=== PATIENT | female | born 1965 | race Caucasian/White ===

== ENCOUNTER 2016-08-08 10:07 | Emergency (ER) | payer OTHER ==
[2016-08-08 10:23] VITALS: BMI 27.1
[2016-08-08 10:24] VITALS: BP 120/75; PULSE 68; RESP 18; TEMP 99; O2SAT 98
[2016-08-08] MEDS ORDERED: Hydrocodone/Acetaminophen 5 mg /300 mg Tab PO STA (10:56)
[2016-08-08] MEDS ORDERED: Hydrocodone/Acetaminophen 5 mg /300 mg Tab PO ONE (11:05)
--- NOTE | 2016-08-08 11:10 | C.PDOC ---
History Of Present Illness 50 year old female presents to the ED for complaints of right upper gum pain that began four days ago and is now radiating to the right cheek and mild cheek swelling. She notes a history dental problems, removal of all upper teeth, and now wears dentures. Patient denies any fever, injuries, or any other complaints at this time. Time Seen by Provider: 08/08/16 10:27 Chief Complaint (Nursing): Dental Pain History Per: Patient History/Exam Limitations: no limitations Onset/Duration Of Symptoms: Days Current Symptoms Are (Timing): Worse Past Medical History Reviewed: Historical Data, Nursing Documentation, Vital Signs Vital Signs: Last Vital Signs Temp 99 F 08/08/16 10:23 Pulse 68 08/08/16 10:23 Resp 18 08/08/16 10:23 BP 120/75 08/08/16 10:23 Pulse Ox 98 08/08/16 11:10 Family History: States: Unknown Family Hx - Social History Hx Alcohol Use: No Hx Substance Use: No Review Of Systems Constitutional: Negative for: Fever, Chills ENT: Positive for: Other (right upper gum pain and right cheek swelling.). Negative for: Ear Pain, Nose Discharge Respiratory: Negative for: Cough Gastrointestinal: Negative for: Nausea, Vomiting, Diarrhea Musculoskeletal: Negative for: Neck Pain Physical Exam - Physical Exam Appears: Non-toxic, No Acute Distress, Other (appears to be in mild pain ) Skin: Warm, Dry Tongue: Normal Appearing, No Swelling, No Laceration Lips: Normal Appearing, No Swelling, No Abrasion, No Laceration Teeth: Edentulous, Dentures, Other (previously removed all upper teeth ) Gingiva: Abscess (right upper gum area of tooth 8 and 7 ), Other (area of tooth 8 and 7 gums has a pustule, no fluctuance, no flux buccal, no actice discharge ) Throat: Normal Cardiovascular: Rhythm Regular, No Murmur Respiratory: No Accessory Muscle Use, No Rales, No Rhonchi, No Stridor, No Wheezing Gastrointestinal/Abdominal: Soft, No Tenderness, No Distention, No Guarding, No Rebound Extremity: Normal ROM, No Tenderness Neurological/Psych: Oriented x3 ED Course And Treatment O2 Sat by Pulse Oximetry: 98 Progress Note: Patient was given clindamycin and hydrocodone and prescribed the same and told to follow up with their dentist. Disposition - Disposition Referrals: [facility] [Outside] [facility] [Outside] Disposition: HOME/ ROUTINE Disposition Time: 11:10 Condition: STABLE Additional Instructions: FOLLOW UP WITH DENTIST WITHIN 1 WEEK USE MEDICATIONS DIRECTED RETURN TO ER IF SYMPTOMS WORSEN Prescriptions: Clindamycin [Cleocin] 300 mg PO Q6 #21 cap Hydrocodone/Acetaminophen [Hydrocodon-Acetaminophen 5-325] 1 each PO Q6 PRN #15 tablet PRN Reason: Pain, Moderate (4-7) Lactobacillus Combination No.4 [Probiotic] 1 each PO DAILY #7 capsule Instructions: Dental Abscess (ED) Print Language: CHINESE - POA Present On Arrival: None - Clinical Impression Clinical Impression: Dental abscess - Scribe Statement The provider has reviewed the documentation as recorded by the Scribvenancio Arroyo All medical record entries made by the Yelenaibvenancio were at my direction and personally dictated by me. I have reviewed the chart and agree that the record accurately reflects my personal performance of the history, physical exam, medical decision making, and the department course for this patient. I have also personally directed, reviewed, and agree with the discharge instructions and disposition.
== END 2016-08-08 11:32 | disposition home or self-care (01) ==
LOC: C.ER 10:07
DX: K04.7 Periapical abscess without sinus (principal)